=== PATIENT | female | born 1945 | race Caucasian/White ===

== ENCOUNTER → 2018-02-05 | Outpatient (CLI) | payer MEDICARE ==
[2016-10-03 15:44] VITALS: BMI 26.1
[~2018-02-05] MED LIST: ACET-3160 PO; ASPI-757 PO; FURO-45 PO; IBUP600T22 PO; LACT1CAP6 PO; LEV125 PO; LEVO0.5P3 PO; LEVO50TA86 PO; MONT10TA PO; OXYC-823 PO; PANT40TA65 PO; PER PO; PROP80TA25 PO; RIVA10TA PO; SENN-187 PO; SENN1TAB10 PO; TRAM-420 PO; ZAFI20TA PO
--- NOTE | 2018-02-05 13:57 | RADIOLOGY IMAGING REPORT ---
FACILITY: PATIENT NAME: Bonnie Bear : 1945 MR: [id number] V: [id number] EXAM DATE: ORDERING PHYSICIAN: GREGORIA BRYSON TECHNOLOGIST: [place] [facility] [place]: Bonnie Bear : 1945 Visit/Account:[id number] Date of Sevice: 02/05/2018 EXAMINATION: Aorta ultrasound with duplex Doppler evaluation HISTORY: Shortness of breath and fatigue COMPARISON: None. FINDINGS: Suprarenal abdominal aorta: 1.6 x 1.7 cm AP and transverse dimensions Superior infrarenal abdominal aorta: 1.4 x 1.5 cm AP and transverse dimensions Mid infrarenal abdominal aorta: 1.6 x 0.7 cm AP and transverse dimensions Inferior infrarenal abdominal aorta: 1.5 x 1.6 cm AP and transverse dimensions Proximal common iliac artery diameter: Left nine mm; right 10 mm Aorta wall: Minimal plaque identified within the abdominal aorta Aorta and proximal common iliac artery are patent by duplex Doppler ultrasound. IMPRESSION: No demonstration of abdominal aortic aneurysm Report Dictated By: Tana Granado MD at 02/05/2018 1:52 PM Report E-Signed By: Tana Granado MD at 02/05/2018 1:53 PM WSN:[email or web address]
== END ==
LOC: US 07:08
PROVIDERS: ATTEND Physician Assistant
DX: I70.0 Atherosclerosis of aorta (principal)
CPT/HCPCS: 93978

== ENCOUNTER → 2018-02-10 | Outpatient (CLI) | payer MEDICARE ==
[2016-10-03 15:44] VITALS: BMI 26.1
--- NOTE | 2018-02-10 16:16 | EKG ---
FACILITY: [facility] PATIENT NAME: ANALILIA NELSON : [id number] MR: [id number] V: [id number] EXAM DATE: ORDERING PHYSICIAN: RODGER COOPER TECHNOLOGIST: CANDI Meade Reason : PRE-OP Blood Pressure : / mmHG Vent. Rate : 039 BPM Atrial Rate : 039 BPM P-R Int : 220 ms QRS Dur : 104 ms QT Int : 464 ms P-R-T Axes : 069 -63 043 degrees QTc Int : 373 ms Marked sinus bradycardia with 1st degree AV block Left axis deviation T wave findings in anterior leads Abnormal ECG Similar to previous EKG from 09/25/16 Confirmed by MADI DELEON ([id number]) on 02/10/2018 5:01:42 PM Referred By: ALLISON Confirmed By:MADI DELEON
--- NOTE | 2018-02-10 16:26 | RADIOLOGY IMAGING REPORT ---
FACILITY: [facility] PATIENT NAME: Bonnie Bear : 1945 MR: [id number] V: [id number] EXAM DATE: [id number] ORDERING PHYSICIAN: RODGER COOPER TECHNOLOGIST: Location: [facility] - [place] Patient: Bonnie Bear : 1945 Visit/Account:[id number] Date of Sevice: 02/10/2018 Exam type: CHEST PA AND LAT History: Preop and may Comparison: September 25, 2016. Findings: The lungs are free of acute effusions, infiltrates or edema. There is mild hyperinflation lung field s. No evidence of a pneumothorax or pneumomediastinum. Cardiac silhouette is normal in size. There is moderate ectasia thoracic aorta. There are postsurgical changes from a right shoulder arthroplas ty IMPRESSION: 1. Hyperinflation lung stinson although no evidence of acute pulmonary consolidation Report Dictated By: Tana Granado MD at 02/10/2018 4:20 PM Report E-Signed By: Tana Granado MD at 02/10/2018 4:21 PM WSN:[email or web address]
== END ==
LOC: RAD 15:35
DX: R91.8 Other nonspecific abnormal finding of lung field (principal); R00.1 Bradycardia, unspecified; I44.0 Atrioventricular block, first degree; R94.31 Abnormal electrocardiogram [ECG] [EKG]
CPT/HCPCS: 71046; 93005

== ENCOUNTER → 2018-06-02 | Outpatient (CLI) | payer MEDICARE ==
[2016-10-03 15:44] VITALS: BMI 26.1
--- NOTE | 2018-06-03 08:55 | RADIOLOGY IMAGING REPORT ---
[place] [facility] [place] NAME: ANALILIA NELSON : [id number] MR: [id number] V: [id number] EXAM DATE: [id number] ORDERING PHYSICIAN: GREGORIA BRYSON TECHNOLOGIST: Vivian Lance PROCEDURE:BILATERAL DIGITAL SCREENING MAMMOGRAM WITH CAD ASSISTED INTERPRETATION & 3D TOMOSYNTHESIS COMPARISON:Prior mammograms 05/14/17, 11/09/14, 02/28/14, 01/27/13, 10/28/11. INDICATIONS:Screening FINDINGS: A moderate amount of fibroglandular tissue is seen throughout the breasts. The parenchymal pattern has remained stable allowing for difference in mammographic technique & patient positioning. There is no evidence of malignant appearing mass, malignant appearing calcifications or other secondary sign of malignancy in either breast. DIAGNOSTIC CATEGORY 1--NEGATIVE. RECOMMENDATIONS: ROUTINE MAMMOGRAM AND CLINICAL EVALUATION. IMPRESSION: BIRADS 1: Negative. No significant abnormality is seen. Dictated by: Tana Granado M.D. on 06/02/2018 at 17:23 Transcribed by: SUPRIYA on 06/03/2018 at 8:39 Approved by: Tana Granado M.D. on 06/03/2018 at 8:54 [facility]
== END ==
LOC: MAMO 00:46
PROVIDERS: ATTEND Physician Assistant
DX: Z12.31 Encounter for screening mammogram for malignant neoplasm of breast (principal); Z80.3 Family history of malignant neoplasm of breast
CPT/HCPCS: 77063; 77067

== ENCOUNTER → 2019-02-24 | Outpatient (REF) | payer MEDICARE ==
[2016-10-03 15:44] VITALS: BMI 26.1
== END ==
LOC: ZZSENDIN 12:00
PROVIDERS: ATTEND Family Medicine
DX: D23.5 Other benign neoplasm of skin of trunk (principal)
CPT/HCPCS: 88305